=== PATIENT | female | born 1965 | race Caucasian/White ===

== ENCOUNTER → 2020-09-25 | Outpatient (CLI) | payer OTHER ==
[~2020-09-25] MED LIST: EFFEXOR XR75 MG PO; IBUPROFEN800 MG PO; NALTREXONE HCL50 MG PO; REMERON15 MG PO; VISTARIL 50 MG50 MG PO
== END ==
LOC: KOH-I 08:58
DX: M21.372 Foot drop, left foot (principal); M21.962 Unspecified acquired deformity of left lower leg; Z98.890 Other specified postprocedural states; W32.0XXA Accidental handgun discharge, initial encounter
CPT/HCPCS: 73610; 73630

== ENCOUNTER 2021-11-06 18:19 | Emergency (ER) | payer OTHER ==
[2021-11-06 19:11] LABS: HEMOGLOBIN 13.9 gm/dl (12.3-15.3); RED BLOOD COUNT 4.43 M/UL (4.00-5.10); WHITE BLOOD COUNT 9.1 K/UL (4.5-11.0)
== END 2021-11-07 15:45 | disposition other institution (70) ==
LOC: ER1 18:19
DX: F10.129 Alcohol abuse with intoxication, unspecified (principal); F17.200 Nicotine dependence, unspecified, uncomplicated; Z20.822 Contact with and (suspected) exposure to COVID-19; Y90.6 Blood alcohol level of 120-199 mg/100 ml
CPT/HCPCS: 80053; 80307; 81001; 82140; 83690; 83735; 85025; 85652; 93005; 96365; 96366; 99285; G0480; J3411; J3475; J7030; U0002